=== PATIENT | male | born 1990 | race American Indian/Alaskan Native ===

== ENCOUNTER 2020-08-05 00:48 | Emergency (ER) | payer SELFPAY ==
[2020-08-05 02:05] VITALS: BP 122/91
[2020-08-05] MEDS ORDERED: traMADol 50 MG TAB PO ONE (02:46)
--- NOTE | 2020-08-05 03:12 | Emergency Department Report ---
ED ENT HPI - General Chief complaint: Dental/Oral Stated complaint: TOOTHACHE Time Seen by Provider: 08/05/20 02:24 Source: patient Mode of arrival: Ambulatory Limitations: No Limitations - History of Present Illness Initial comments: 30-year-old male presents to the emergency room complaining of right upper dental pain x1 week. He has known dental caries he was last seen by a dentist in March and had tooth extraction. Patient states that he still has ongoing dental pain and cannot afford to see a dentist. He denies any difficulty chewing or swallowing he denies fever he has no facial swelling. Patient states that [id number] pain meds are not really relieving his tooth ache. No other known chronic medical conditions patient is in no distress MD complaint: tooth pain Severity: moderate Consistency: constant Improves with: none Worsens with: none Context- Dental: history of dental caries, poor dental care Associated Symptoms: gum swelling, toothache. denies: fever, cough, pain with swallowing, sore throat, tinnitus, hearing loss, discharge from ear, rhinorrhea, other - Related Data Previous Rx's Medication Instructions Recorded Last Taken Type Ibuprofen [Motrin] 800 mg PO Q8HR PRN #21 tablet 08/05/20 Unknown Rx Penicillin V Potassium 500 mg PO Q8H 10 Days #30 tablet 08/05/20 Unknown Rx Allergies Allergy/AdvReac Type Severity Reaction Status Date / Time No Known Allergies Allergy Unverified 08/05/20 02:16 ED Dental HPI - General Chief complaint: Dental/Oral Stated complaint: TOOTHACHE Time Seen by Provider: 08/05/20 02:24 Source: patient Mode of arrival: Ambulatory Limitations: No Limitations - Related Data Previous Rx's Medication Instructions Recorded Last Taken Type Ibuprofen [Motrin] 800 mg PO Q8HR PRN #21 tablet 08/05/20 Unknown Rx Penicillin V Potassium 500 mg PO Q8H 10 Days #30 tablet 08/05/20 Unknown Rx Allergies Allergy/AdvReac Type Severity Reaction Status Date / Time No Known Allergies Allergy Unverified 08/05/20 02:16 ED Review of Systems ROS: Stated complaint: TOOTHACHE Other details as noted in HPI Comment: All other systems reviewed and negative Constitutional: no symptoms reported. denies: chills, fever, malaise Eyes: denies: eye pain, eye discharge ENT: dental pain. denies: ear pain, throat pain, congestion Respiratory: denies: cough, shortness of breath, SOB with exertion, wheezing Cardiovascular: denies: chest pain Endocrine: no symptoms reported Gastrointestinal: denies: abdominal pain, nausea, vomiting, diarrhea, constipation Genitourinary: denies: urgency, dysuria Musculoskeletal: denies: back pain Neurological: denies: headache, weakness Psychiatric: denies: anxiety Hematological/Lymphatic: denies: as per HPI ED Past Medical Hx - Surgical History Past Surgical History?: No - Social History Smoking Status: Current Every Day Smoker Substance Use Type: Marijuana - Medications Home Medications: Home Medications Medication Instructions Recorded Confirmed Last Taken Type Ibuprofen [Motrin] 800 mg PO Q8HR PRN #21 tablet 08/05/20 Unknown Rx Penicillin V Potassium 500 mg PO Q8H 10 Days #30 tablet 08/05/20 Unknown Rx ED Physical Exam - General Limitations: No Limitations General appearance: alert, in no apparent distress - Head Head exam: Present: atraumatic - Eye Eye exam: Present: normal appearance - ENT ENT exam: Present: mucous membranes moist, other (No facial swelling tenderness around tooth #3 and mild erythema no swelling) - Neck Neck exam: Present: normal inspection, full ROM - Respiratory Respiratory exam: Present: normal lung sounds bilaterally. Absent: respiratory distress, chest wall tenderness - Cardiovascular Cardiovascular Exam: Present: regular rate, normal heart sounds - Extremities Exam Extremities exam: Present: normal inspection - Neurological Exam Neurological exam: Present: alert, oriented X3 - Psychiatric Psychiatric exam: Present: normal affect - Skin Skin exam: Present: warm, dry, intact ED Course Vital Signs 08/05/20 01:58 Temperature 98.0 F Pulse Rate 90 Respiratory 14 Rate Blood Pressure 122/91 O2 Sat by Pulse 99 Oximetry - Reevaluation(s) Reevaluation #1: 08/05/20 03:40 Patient in no acute distress ED Medical Decision Making - Medical Decision Making 30-year-old male with a history of dental caries. He has had previous tooth extraction but still has dental caries that needs to be taking care of. There there is tenderness and erythema to the gum around tooth #3. No facial swelling no trismus no difficulty swallowing. Patient is afebrile I discussed with patient at length the importance of dental follow-up he is giving to referrals to dentist. Plan is to continue with ibuprofen 800 mg as needed for pain and penicillin VK 3 times daily x10 days in addition to warm salt water gargles. Critical Care Time: No Critical care attestation.: If time is entered above; I have spent that time in minutes in the direct care of this critically ill patient, excluding procedure time. ED Disposition Clinical Impression: Pain, dental, Dental caries Disposition: TO HOME OR SELFCARE Is pt being admited?: No Does the pt Need Aspirin: No Condition: Stable Instructions: Preventive Dental Care, Adult, Acute Pain, Adult Additional Instructions: Warm salt water gargles at least 3 times a day. Take antibiotic as prescribed and and finish completely. Take ibuprofen 800 mg with food every 8 hours as needed for pain. It is okay to alternate Tylenol in between Advil Tylenol can be taken every 4-6 hours as needed for pain 2 tablets. You must follow-up with a dentist please refer to the 2 sources of given you for follow-up. Return to the emergency room for any facial swelling difficulty swallowing fever. Prescriptions: Ibuprofen [Motrin] 800 mg PO Q8HR PRN #21 tablet PRN Reason: Pain, Moderate (4-6) Penicillin V Potassium 500 mg PO Q8H 10 Days #30 tablet Referrals: [facility] [Outside] - 3-5 Days [facility] [Outside] - 3-5 Days Time of Disposition: 03:13
== END 2020-08-05 03:31 | disposition home or self-care (01) ==
LOC: ED 00:48
DX: K02.9 Dental caries, unspecified (principal); F17.200 Nicotine dependence, unspecified, uncomplicated; F12.10 Cannabis abuse, uncomplicated; Z79.1 Long term (current) use of non-steroidal anti-inflammatories (NSAID); Z79.899 Other long term (current) drug therapy
CPT/HCPCS: 99282

== ENCOUNTER 2021-09-04 01:59 | Emergency (ER) | payer SELFPAY ==
[2021-09-04 02:43] VITALS: BP 152/111
--- NOTE | 2021-09-04 07:32 | Emergency Department Report ---
Chief Complaint: Headache Stated Complaint: HEADACHE - HPI History of Present Illness: 29-year-old male presents to the ED with no complaints. He states that he had a headache prior to coming to the ED but headache has since resolved. Patient states that he has taken Motrin 800 mg prior to arrival. Patient do not wish to seek any further treatment at this time. No acute distress noted no ill appearance noted. Patient alert and oriented x4. - Exam Vital Signs: Vital Signs 09/04/21 02:39 Temperature 98.3 F Pulse Rate 58 L Respiratory 18 Rate Blood Pressure 152/111 O2 Sat by Pulse 100 Oximetry Physical Exam: General: Awake, appropriately interactive, no acute distress. Neck: Supple. Full range of motion intact. Cardiovascular: Normal peripheral perfusion. Pulmonary: No respiratory distress. Patient is speaking normally without use of accessory muscles. Skin: No apparent rashes or lesions. Neurological: No facial asymmetry. Speech is clear. Follows commands. Patient is alert and oriented. Musculoskeletal: Full range of motion, no crepitus. No tenderness to palpate nonerythematous no edema test appreciated. Able to bear weight and ambulate without difficulty. Distal neurovascular and motor/sensory function is intact. Psych: Cooperative. Appropriate mood and affect. MSE screening note: Focused history and physical exam performed. Due to findings the following was ordered: ED Medical Decision Making - Medical Decision Making 29-year-old male presents to the ED with no complaints. He states that he had a headache prior to coming to the ED but headache has since resolved. Patient states that he has taken Motrin 800 mg prior to arrival. Patient do not wish to seek any further treatment at this time. No acute distress noted no ill appearance noted. Patient alert and oriented x4. Patient has no known medical history. Patient vital sign stable at time at discharge.Bp 136/92 Discussed plan of care with patient. Patient to follow-up with primary care doctor. ED Disposition for MSE Clinical Impression: Headache Qualifiers: Headache type: tension-type Headache chronicity pattern: acute headache Intractability: not intractable Qualified Code(s): G44.209 - Tension-type headache, unspecified, not intractable Is pt being admited?: No Does the pt Need Aspirin: No Condition: Stable Instructions: General Headache Without Cause, [id number] Additional Instructions: May take Tylenol or Motrin for headache Return to ED for worsening symptoms Follow-up with PCP as needed Referrals: PRIMARY CARE, [Primary Care Provider] - 3-5 Days ELSA VILLANUEVA MD [Staff Physician] - 3-5 Days ED Review of Systems ROS: Stated complaint: HEADACHE Other details as noted in HPI Constitutional: denies: chills, fever Eyes: denies: eye pain, eye discharge, vision change ENT: denies: ear pain, throat pain Respiratory: denies: cough, shortness of breath, wheezing Cardiovascular: denies: chest pain, palpitations Endocrine: no symptoms reported Gastrointestinal: denies: abdominal pain, nausea, diarrhea Genitourinary: denies: urgency, dysuria Musculoskeletal: denies: back pain, joint swelling, arthralgia Skin: denies: rash, lesions Neurological: headache. denies: weakness, paresthesias Psychiatric: denies: anxiety, depression Hematological/Lymphatic: denies: easy bleeding, easy bruising
== END 2021-09-04 06:40 | disposition left against medical advice (07) ==
LOC: ED 01:59
DX: R51.9 Headache, unspecified (principal)
CPT/HCPCS: 99281